=== PATIENT | male | born 1980 | race Caucasian/White ===

== ENCOUNTER 2019-10-03 13:34 | Emergency (ER) | payer OTHER, SELFPAY ==
[2019-10-03 13:46] VITALS: BP 146/80; PULSE 78; RESP 16; TEMP 36.4; O2SAT 96
--- NOTE | 2019-10-03 14:03 | ED.SKABFB ---
HPI - Skin/Abscess/Foreign Bdy General Chief complaint: Skin/Abscess/Foreign Body Stated complaint: Rash by penis History of Present Illness HPI narrative: This is a 39-year-old male that comes in complaining of left upper thigh area that is red and circular noticed it today patient states he has had jock itch. Patient states he has taken medicine and went away but he is just now noticing this red erythematous circular area on the left upper thigh Related Data Allergies Allergy/AdvReac Type Severity Reaction Status Date / Time No Known Allergies Allergy Verified 10/03/19 14:01 Review of Systems Review of Systems: Narrative: CONSTITUTIONAL: Denies fever, chills, or sweats. EYES: Denies visual changes, redness, or discharge. ENT: Denies rhinorrhea, congestion, sore throat, or otalgia. CARDIOVASCULAR:Denies chest pain, palpitations, or edema. RESPIRATORY: Denies cough or dyspnea. GASTROINTESTINAL: Denies abdominal pain, nausea, vomiting, or diarrhea. GENITOURINARY: Denies dysuria or hematuria. SKIN: Reports rash or itching. MUSCULOSKELETAL:Denies back pain, joint pain, or myalgia. NEUROLOGIC: Denies headache, numbness, or weakness. PSYCHIATRIC:Denies anxiety or depression PMFSH Comments At time as signature, I have reviewed and agree with nursing past medical, social, surgical and family history. Please see nursing chart for further information. There is no relevant family history pertinent to the presenting complaint. Exam Narrative: Exam Narrative: GENERAL:Well-appearing, well-nourished, and in no acute distress. HEAD:Normocephalic, atraumatic. EYES: PERRLA and EOMI. ENT: Nares clear, no rhinorrhea or epistaxis. Mucous membranes moist. NECK: Supple. CHEST: Clear to auscultation. No respiratory distress. HEART: Regular rate and rhythm. No murmur heard. Normal peripheral pulses. ABDOMEN: Soft, nontender, nondistended, normal active bowel sounds. EXTREMITIES: Normal range of motion. No edema. SKIN: Warm, dry, no rash. Circular dry slightly raised erythematous to the left upper thigh some urticaria NEURO: No focal deficits. Alert and oriented x3. Course Vital Signs Vital signs: Vital Signs Temperature 97.6 F 10/03/19 13:46 Pulse Rate 78 10/03/19 13:46 Respiratory Rate 16 10/03/19 13:46 Blood Pressure 146/80 H 10/03/19 13:46 Pulse Oximetry 96 10/03/19 13:46 Temperature 97.6 F 10/03/19 13:46 Pulse Rate 78 10/03/19 13:46 Respiratory Rate 16 10/03/19 13:46 Blood Pressure 146/80 H 10/03/19 13:46 Pulse Oximetry 96 10/03/19 13:46 MDM - Skin/Abscess/Foreign Bdy Differential Diagnosis Differential diagnosis: Likely abscess of skin or subcutaneous tissue, viral exanthem, urticaria, cellulitis, impetigo and contact dermatitis Discharge Plan Discharge Clinical Impression: Groin ringworm Patient Disposition: Home, Self-Care Condition: Stable Instructions: Antibiotic Form, Tinea Capitis (ED) Additional Instructions: Use skin creams/lotion, such as those containing calamine or pramoxine to reduce itchiness Avoid scratching when possible to prevent worsening of the condition and disruption of the skin that could lead to bacterial infection To relieve itching, place a cool washcloth or some ice over the area that itches, rather than scratching Return to the office or seek ER visit if condition is not improving or worsens with fever, swelling, difficulty breathing or swallowing. Tinea cruris usually starts by causing a red, itchy rash in the groin, the crease where the leg meets the trunk. From there, it can spread onto the thighs and toward the buttocks or anus. It is more common in men than in women, and it often surfaces during warm or hot weather, after a bout of heavy sweating. The most common source of this infection is the person's own tinea pedis (athlete's foot). Most cases of tinea cruris can be successfully treated with an antifungal cream/lotion/gel, some of which are avail
== END 2019-10-03 14:22 | disposition home or self-care (01) ==
PROVIDERS: Emergency Provider Nurse Practitioner Family; PCP Internal Medicine
DX: B35.6 Tinea cruris (principal)
CPT/HCPCS: 99203; G0463

== ENCOUNTER 2020-01-01 10:21 | Emergency (ER) | payer OTHER, SELFPAY ==
[2020-01-01 10:33] VITALS: BP 129/68; PULSE 67; RESP 16; TEMP 37; O2SAT 98
--- NOTE | 2020-01-01 10:57 | ED.SKABFB ---
HPI - Skin/Abscess/Foreign Bdy General Chief complaint: Skin/Abscess/Foreign Body Stated complaint: knot on right armpit Time Seen by Provider: 01/01/20 10:49 Source: patient and RN notes reviewed Mode of arrival: ambulatory Limitations: no limitations History of Present Illness HPI narrative: Patient presents today complaining of a possible abscess to the right axilla x2 days. Reports it started out looking like a pimple and has significantly worsened and become very painful. Currently rates his pain 8/10. Pain increases when he raises his arm. He has tried no [id number] interventions prior to arrival. Reports that, many years ago he had 2 abscesses that were treated. complaint: abscess/boil Related Data Allergies Allergy/AdvReac Type Severity Reaction Status Date / Time No Known Allergies Allergy Verified 01/01/20 10:44 Review of Systems Review of Systems: Narrative: CONSTITUTIONAL: Denies body aches, fever, chills, or sweats. EYES: Denies visual changes, redness, or discharge. ENT: Denies rhinorrhea, congestion, sore throat, or otalgia. CARDIOVASCULAR: Denies chest pain, palpitations, or edema. RESPIRATORY: Denies cough or dyspnea. GASTROINTESTINAL: Denies abdominal pain, nausea, vomiting, or diarrhea. GENITOURINARY: Denies dysuria or hematuria. SKIN: + Abscess to right axilla MUSCULOSKELETAL: Denies back pain, joint pain, or myalgia. NEUROLOGIC: Denies headache, numbness, tingling, or weakness. PSYCH: Denies depression or anxiety. PMFSH Comments At time of signature, I have reviewed and agree with nursing past medical, surgical, social and family history unless otherwise noted. Please see nursing chart for further information. There is no relevant family history pertinent to the presenting complaint Exam Narrative: Exam Narrative: GENERAL: Well-appearing, well-nourished, and in no acute distress. HEAD: Normocephalic, atraumatic. EYES: EOMI. No redness or drainage. Conjunctivae normal. ENT: Mucous membranes pink and moist. NECK: Normal AROM. CHEST: No respiratory distress. EXTREMITIES: Normal range of motion. No edema. SKIN: Warm, dry, no rash. Capillary refill normal. Normal skin turgor. 1x2cm fluctuant erythematous abscess to right axilla. Tender to palpation. NEURO: No focal deficits. Alert and oriented x3. Gait steady. PSYCH: Normal affect. No signs of depression or anxiety. Course Course Emergency Course: Patient refuses abscess I&D today. Vital Signs Vital signs: Vital Signs Temperature 98.6 F 01/01/20 10:33 Pulse Rate 67 01/01/20 10:33 Respiratory Rate 16 01/01/20 10:33 Blood Pressure 129/68 01/01/20 10:33 Pulse Oximetry 98 01/01/20 10:33 Temperature 98.6 F 01/01/20 10:33 Pulse Rate 67 01/01/20 10:33 Respiratory Rate 16 01/01/20 10:33 Blood Pressure 129/68 01/01/20 10:33 Pulse Oximetry 98 01/01/20 10:33 Reviewed. Pt has been instructed to follow up with his PCP regarding his elevated blood pressure today. MDM - Skin/Abscess/Foreign Bdy Differential Diagnosis Differential diagnosis: Likely abscess of skin or subcutaneous tissue, impetigo and other (Hidradenitis suppurativa) Critical Care Time Critical Care Time Critical Care Time: No Discharge Plan Discharge Clinical Impression: Abscess of skin or subcutaneous tissue Qualifiers: Site of cutaneous abscess: extremity Site of cutaneous abscess of extremity: axilla Laterality: right Qualified Code(s): L02.411 - Cutaneous abscess of right axilla Patient Disposition: Home, Self-Care Condition: Stable Instructions: Antibiotic Form, Abscess (ED) Additional Instructions: Please take the clindamycin as prescribed until gone. Take Tylenol or ibuprofen at home for pain. As discussed, the abscess may rupture on its own and drain, which is okay. If symptoms are not improving in 3 to 4 days, follow-up with your doctor. Your blood pressure was elevated above 120/80 today at Urgent Care.
== END 2020-01-01 11:06 | disposition home or self-care (01) ==
PROVIDERS: Emergency Provider Nurse Practitioner
DX: L02.411 Cutaneous abscess of right axilla (principal)
CPT/HCPCS: 99213; G0463